=== PATIENT | male | born 1965 | race African-American/Black ===

== ENCOUNTER 2021-02-18 23:20 | Inpatient (IN) | payer OTHER ==
[~2021-02-18] VITALS: Ht 177.8 cm; Wt 127.0 kg
[2021-02-19] MEDS ORDERED: ASPIRIN 81MG TABLET PO ONE
[2021-02-19] MEDS ORDERED: NITROGLYCERIN OINT 1GM/INCH UDPKT TD ONE
[2021-02-19] MEDS ORDERED: FUROSEMIDE 40MG/4ML VIAL IV ONE
[2021-02-19 00:33] LABS: BASOPHILS % 0.9 % (0.0-2.0); EOSINOPHILS % 0.5 % (0.0-5.0); HEMATOCRIT. 45.3 % (42.0-52.0); HEMOGLOBIN. 15.1 g/dL (14.0-18.0); LYMPHOCYTES % 16.3 % (20.0-50.0); MEAN CORPUSCULAR HEMOGLOBIN 28.7 pg (28.0-32.0); MEAN PLATELET VOLUME 11.6 fl (7.4-10.4); NEUTROPHILS % 75.3 % (40.0-76.0); PLATELET 136 x1000/uL (130-400); RED BLOOD CELL COUNT 5.26 mill/uL (4.7-6.1)
[2021-02-19 01:45] LABS: CHLORIDE 95 mEq/L (98-107)
[2021-02-19] MEDS ORDERED: ONDANSETRON HCL 4MG/2ML INJ IV STA ×2 (04:01→09:09)
[2021-02-19] MEDS ORDERED: MORPHINE SULFATE 4 MG/ML CPJ (NOT FOR IM USE) IV STA ×2 (04:01→09:09)
[2021-02-19 10:48] VITALS: BP 118/69
[2021-02-19] MEDS ORDERED: ACETAMINOPHEN 325MG TABLET PO PRN ×2 (13:30)
[2021-02-19] MEDS ORDERED: CLONIDINE 0.1MG TABLET PO PRN (13:30)
[2021-02-19] MEDS ORDERED: DOCUSATE SODIUM 100MG CAPSULE PO PRN (13:30)
[2021-02-19] MEDS ORDERED: LORAZEPAM 0.5MG TABLET PO PRN (13:30)
[2021-02-19] MEDS ORDERED: IPRATROPIUM/ALBUTEROL 0.5-3(2.5)MG/3ML NEB HHN PRN (13:30)
[2021-02-19] MEDS ORDERED: ONDANSETRON HCL 4MG/2ML INJ IV PRN (13:30)
[2021-02-19] MEDS ORDERED: POTASSIUM CHLORIDE 20MEQ TABLET SR PO SCH (14:00)
[2021-02-19] MEDS: ENOXAPARIN 30MG/0.3ML SYR SUBCUT SCH ×2 (14:00→22:48)
[2021-02-19] MEDS: FUROSEMIDE 40MG/4ML VIAL IVP SCH ×2 (14:29→21:41)
[2021-02-19 15:24] VITALS: BP 118/69
[2021-02-19 16:00] VITALS: BP 107/64
[2021-02-19] MEDS ORDERED: QUET200T PO (16:17)
[2021-02-19] MEDS ORDERED: SACU1TAB PO (16:17)
[2021-02-19] MEDS ORDERED: FOLI-43 PO (16:17)
[2021-02-19] MEDS ORDERED: ZOLP5TAB2 PO (16:17)
[2021-02-19] MEDS ORDERED: CARV25TA47 PO (16:17)
[2021-02-19] MEDS ORDERED: ASPI-1497 PO (16:17)
[2021-02-19] MEDS ORDERED: PRED10TA23 PO (16:17)
[2021-02-19] MEDS ORDERED: POTA25TA8 PO (16:17)
[2021-02-19] MEDS ORDERED: LEVO50TA8 PO (16:17)
[2021-02-19] MEDS ORDERED: ATOR40TA70 PO (16:17)
[2021-02-19] MEDS ORDERED: AMIO100T4 PO (16:17)
[2021-02-19] MEDS ORDERED: GLIP10TA10 PO (16:17)
[2021-02-19 16:23] LABS: CREATINE KINASE MB FRACTION 1.7 ng/mL (0.5-3.6)
[2021-02-19] MEDS: HYDROCODONE/ACETAMINOPHEN 5/325MG TABLET PO PRN (18:01)
[2021-02-19 20:30] VITALS: BP 112/79
[2021-02-19] MEDS ORDERED: MORPHINE SULFATE 2 MG/ML CPJ (NOT FOR IM USE) IV NR (21:00)
[2021-02-19] MEDS ORDERED: NITROGLYCERIN 0.4MG TABLET SL SL PRN (21:00)
[2021-02-19] MEDS: CARVEDILOL 3.125 MG TABLET PO SCH (21:41)
[2021-02-19] MEDS: QUETIAPINE FUMARATE 50MG TABLET PO PRN (21:54)
[2021-02-20] VITALS: BP 97/75
[2021-02-20 04:18] VITALS: BP 102/72
[2021-02-20] MEDS ORDERED: DEXTROSE 50% WATER 50ML SYRINGE IV PRN (06:45)
[2021-02-20 06:49] LABS: BASOPHILS % 1.1 % (0.0-2.0); EOSINOPHILS % 0.9 % (0.0-5.0); HEMATOCRIT. 41.6 % (42.0-52.0); HEMOGLOBIN. 13.8 g/dL (14.0-18.0); LYMPHOCYTES % 18.7 % (20.0-50.0); MEAN CORPUSCULAR HEMOGLOBIN 28.7 pg (28.0-32.0); MEAN CORPUSCULAR VOLUME 86.9 fL (80.0-94.0); MEAN PLATELET VOLUME 11.2 fl (7.4-10.4); MONOCYTES % 7.1 % (2.0-8.0); NEUTROPHILS % 72.2 % (40.0-76.0); PLATELET 125 x1000/uL (130-400); RED BLOOD CELL COUNT 4.79 mill/uL (4.7-6.1)
[2021-02-20 06:53] LABS: CHLORIDE 93 mEq/L (98-107)
[2021-02-20 07:01] LABS: PHOSPHORUS 3.5 mg/dL (2.5-4.9)
[2021-02-20] MEDS: BLOOD SUGAR DIAGNOSTIC STRIP TEST SCH ×4 (07:20→20:46)
[2021-02-20] MEDS ORDERED: INSULIN LISPRO 100 UNITS/ML SUBCUT SCH (07:50)
[2021-02-20 08:06] VITALS: BP 108/75
[2021-02-20] MEDS: FUROSEMIDE 40MG/4ML VIAL IVP SCH ×2 (08:59→17:12)
[2021-02-20] MEDS: POTASSIUM CHLORIDE 20MEQ TABLET SR PO SCH (08:59)
[2021-02-20] MEDS: ENOXAPARIN 30MG/0.3ML SYR SUBCUT SCH ×2 (09:00→20:46)
[2021-02-20] MEDS: CARVEDILOL 3.125 MG TABLET PO SCH ×2 (09:00→20:45)
[2021-02-20 12:00] VITALS: BP 100/74
[2021-02-20] MEDS ORDERED: MAGNESIUM 2 G PREMIX 50 ML IV SCH (13:00)
[2021-02-20] MEDS ORDERED: INSULIN GLARGINE UD 100 UNITS/ML SYR SUBCUT SCH (13:00)
[2021-02-20] MEDS: INSULIN LISPRO 100 UNITS/ML SUBCUT SCH ×3 (13:15→21:03)
[2021-02-20 13:29] LABS: T4 FREE 1.86 ng/dL (0.76-1.46)
[2021-02-20] MEDS ORDERED: POTASSIUM CHLORIDE 20MEQ TABLET SR PO SCH (15:00)
[2021-02-20] MEDS ORDERED: HYDRALAZINE 20MG/ML VIAL IV PRN (15:15)
[2021-02-20] MEDS: ASPIRIN 81MG TABLET PO SCH (17:12)
[2021-02-20 19:50] VITALS: BP 104/67
[2021-02-20] MEDS ORDERED: MORPHINE SULFATE 2 MG/ML CPJ (NOT FOR IM USE) IV NR (20:15)
[2021-02-20] MEDS: FAMOTIDINE 20MG TABLET PO SCH (20:45)
[2021-02-20] MEDS ORDERED: TEMAZEPAM 15MG CAPSULE PO PRN (21:00)
[2021-02-20] MEDS: INSULIN GLARGINE UD 100 UNITS/ML SYR SUBCUT SCH (21:04)
[2021-02-20] MEDS: QUETIAPINE FUMARATE 50MG TABLET PO PRN (23:08)
[2021-02-21] VITALS (7 sets, daily range): BP systolic 92–115; BP diastolic 64–84
[2021-02-21] MEDS: BLOOD SUGAR DIAGNOSTIC STRIP TEST SCH ×4 (06:43→20:32)
[2021-02-21 06:51] LABS: PROTHROMBIN TIME 11.1 sec (9.6-11.0)
[2021-02-21 06:56] LABS: CHLORIDE 95 mEq/L (98-107)
[2021-02-21 07:07] LABS: BASOPHILS % 0.9 % (0.0-2.0); EOSINOPHILS % 0.5 % (0.0-5.0); HEMATOCRIT. 39.5 % (42.0-52.0); HEMOGLOBIN. 13.7 g/dL (14.0-18.0); LYMPHOCYTES % 20.3 % (20.0-50.0); MEAN CORPUSCULAR HEMOGLOBIN 29.6 pg (28.0-32.0); MEAN CORPUSCULAR VOLUME 85.4 fL (80.0-94.0); MEAN PLATELET VOLUME 11.8 fl (7.4-10.4); MONOCYTES % 6.3 % (2.0-8.0); PLATELET 126 x1000/uL (130-400); RED BLOOD CELL COUNT 4.62 mill/uL (4.7-6.1); RED CELL DISTRIBUTION WIDTH 13.6 % (11.6-14.6)
[2021-02-21] MEDS: INSULIN LISPRO 100 UNITS/ML SUBCUT SCH ×4 (07:53→21:46)
[2021-02-21] MEDS ORDERED: POTASSIUM CHLORIDE 20MEQ/PACKET PO NR (08:00)
[2021-02-21] MEDS: FUROSEMIDE 40MG/4ML VIAL IVP SCH ×2 (08:03→16:15)
[2021-02-21] MEDS: CARVEDILOL 3.125 MG TABLET PO SCH ×2 (08:10→21:49)
[2021-02-21] MEDS: POTASSIUM CHLORIDE 20MEQ TABLET SR PO SCH (08:11)
[2021-02-21] MEDS: LOSARTAN POTASSIUM 25 MG TABLET PO SCH (08:11)
[2021-02-21] MEDS: ASPIRIN 81MG TABLET PO SCH (08:11)
[2021-02-21] MEDS: ENOXAPARIN 30MG/0.3ML SYR SUBCUT SCH ×2 (08:12→20:32)
[2021-02-21] MEDS ORDERED: POTASSIUM CHLORIDE 20MEQ TABLET SR PO NR (08:30)
[2021-02-21] MEDS: INSULIN GLARGINE UD 100 UNITS/ML SYR SUBCUT SCH ×2 (09:06→21:46)
[2021-02-21] MEDS ORDERED: MAGNESIUM 2 G PREMIX 50 ML IV NR (11:48)
[2021-02-21] MEDS: AMIODARONE HCL 200 MG TABLET PO SCH ×2 (12:45→16:15)
[2021-02-21 19:30] LABS: *AMPHETAMINES SCREEN URINE NEGATIVE (NEGATIVE); *BARBITURATES SCREEN URINE NEGATIVE (NEGATIVE); *BENZODIAZEPINES SCREEN URINE NEGATIVE (NEGATIVE); *COCAINE SCREEN URINE NEGATIVE (NEGATIVE); CANNABINOID URINE SCREEN PRESUMTIVE POSITIVE (NEGATIVE)
[2021-02-21 19:31] LABS: METHADONE URINE SCREEN NEGATIVE (NEGATIVE); OPIATES URINE SCREEN PRESUMTIVE POSITIVE (NEGATIVE); PHENCYCLIDINE URINE SCREEN NEGATIVE (NEGATIVE)
[2021-02-21] MEDS: FAMOTIDINE 20MG TABLET PO SCH (21:45)
[2021-02-21] MEDS: HYDROCODONE/ACETAMINOPHEN 5/325MG TABLET PO PRN (21:49)
[2021-02-21] MEDS: QUETIAPINE FUMARATE 50MG TABLET PO PRN (21:55)
[2021-02-22] VITALS: BP 106/73
[2021-02-22 05:33] VITALS: BP 109/72
[2021-02-22 06:34] LABS: BASOPHILS % 0.8 % (0.0-2.0); EOSINOPHILS % 0.4 % (0.0-5.0); HEMATOCRIT. 39.2 % (42.0-52.0); HEMOGLOBIN. 13.5 g/dL (14.0-18.0); LYMPHOCYTES % 20.4 % (20.0-50.0); MEAN CORPUSCULAR HEMOGLOBIN 29.5 pg (28.0-32.0); MEAN CORPUSCULAR VOLUME 85.4 fL (80.0-94.0); MEAN PLATELET VOLUME 11.9 fl (7.4-10.4); MONOCYTES % 6.8 % (2.0-8.0); NEUTROPHILS % 71.6 % (40.0-76.0); PLATELET 127 x1000/uL (130-400); RED BLOOD CELL COUNT 4.59 mill/uL (4.7-6.1); RED CELL DISTRIBUTION WIDTH 13.9 % (11.6-14.6)
[2021-02-22 06:38] LABS: CHLORIDE 96 mEq/L (98-107)
[2021-02-22] MEDS: BLOOD SUGAR DIAGNOSTIC STRIP TEST SCH ×4 (06:41→21:10)
[2021-02-22] MEDS ORDERED: POTASSIUM CHLORIDE 20MEQ TABLET SR PO ONE (07:15)
[2021-02-22 07:38] VITALS: BP 102/75
[2021-02-22] MEDS: INSULIN LISPRO 100 UNITS/ML SUBCUT SCH ×4 (07:50→21:20)
[2021-02-22] MEDS: LOSARTAN POTASSIUM 25 MG TABLET PO SCH (09:15)
[2021-02-22] MEDS: ASPIRIN 81MG TABLET PO SCH (09:15)
[2021-02-22] MEDS: AMIODARONE HCL 200 MG TABLET PO SCH ×3 (09:16→18:19)
[2021-02-22] MEDS: POTASSIUM CHLORIDE 20MEQ TABLET SR PO SCH (09:16)
[2021-02-22] MEDS: FUROSEMIDE 40MG/4ML VIAL IVP SCH ×2 (09:16→17:00)
[2021-02-22] MEDS: ENOXAPARIN 30MG/0.3ML SYR SUBCUT SCH ×2 (09:16→20:12)
[2021-02-22] MEDS: CARVEDILOL 3.125 MG TABLET PO SCH ×2 (09:17→20:11)
[2021-02-22] MEDS: INSULIN GLARGINE UD 100 UNITS/ML SYR SUBCUT SCH ×2 (10:00→21:20)
[2021-02-22 12:00] VITALS: BP 97/67
[2021-02-22] MEDS ORDERED: POTASSIUM CHLORIDE 20MEQ TABLET SR PO NR (15:00)
[2021-02-22 16:00] VITALS: BP 90/59
[2021-02-22 20:00] VITALS: BP 99/63
[2021-02-22] MEDS ORDERED: MORPHINE SULFATE 2 MG/ML CPJ (NOT FOR IM USE) IV SCH (20:00)
[2021-02-22] MEDS: FAMOTIDINE 20MG TABLET PO SCH (21:16)
[2021-02-22] MEDS: QUETIAPINE FUMARATE 50MG TABLET PO PRN (21:16)
[2021-02-23] VITALS (7 sets, daily range): BP systolic 90–112; BP diastolic 66–80
[2021-02-23 06:08] LABS: EOSINOPHILS % 0.2 % (0.0-5.0); HEMATOCRIT. 40.4 % (42.0-52.0); LYMPHOCYTES % 21.2 % (20.0-50.0); MEAN CORPUSCULAR HEMOGLOBIN 29.5 pg (28.0-32.0); MEAN CORPUSCULAR VOLUME 85.4 fL (80.0-94.0); MEAN PLATELET VOLUME 11.9 fl (7.4-10.4); MONOCYTES % 6.3 % (2.0-8.0); NEUTROPHILS % 71.3 % (40.0-76.0); PLATELET 130 x1000/uL (130-400); RED BLOOD CELL COUNT 4.73 mill/uL (4.7-6.1); RED CELL DISTRIBUTION WIDTH 13.8 % (11.6-14.6)
[2021-02-23] MEDS: BLOOD SUGAR DIAGNOSTIC STRIP TEST SCH ×3 (06:21→16:59)
[2021-02-23 06:40] LABS: CHLORIDE 97 mEq/L (98-107)
[2021-02-23] MEDS: INSULIN LISPRO 100 UNITS/ML SUBCUT SCH ×3 (07:23→17:06)
[2021-02-23] MEDS: FUROSEMIDE 40MG/4ML VIAL IVP SCH ×2 (08:44→16:34)
[2021-02-23] MEDS: ASPIRIN 81MG TABLET PO SCH (08:44)
[2021-02-23] MEDS: CARVEDILOL 3.125 MG TABLET PO SCH (08:45)
[2021-02-23] MEDS: AMIODARONE HCL 200 MG TABLET PO SCH ×3 (08:45→16:34)
[2021-02-23] MEDS: LOSARTAN POTASSIUM 25 MG TABLET PO SCH (08:45)
[2021-02-23] MEDS: POTASSIUM CHLORIDE 20MEQ TABLET SR PO SCH (08:45)
[2021-02-23] MEDS: ENOXAPARIN 30MG/0.3ML SYR SUBCUT SCH (08:46)
[2021-02-23] MEDS: INSULIN GLARGINE UD 100 UNITS/ML SYR SUBCUT SCH (10:08)
[2021-02-23] MEDS ORDERED: AMIO100T4 PO (13:06)
[2021-02-23] MEDS ORDERED: FURO-151 MT (13:06)
[2021-02-23] MEDS ORDERED: COR3 MT (13:06)
[2021-02-23] MEDS ORDERED: POTASSIUM CHLORIDE 20MEQ TABLET SR PO NR (16:45)
== END 2021-02-23 18:15 | disposition home or self-care (01) | DRG 194 ==
LOC: ER 23:20 → 6WST 02-19 08:59 → ENRESERV 02-19 09:36
PROVIDERS: ADMIT Internal Medicine; ATTEND Internal Medicine
PROC: 4B02XTZ Measurement of Cardiac Defibrillator, External Approach (ICD-10-PCS; principal; 2021-02-23)
DX: I11.0 Hypertensive heart disease with heart failure (principal); I47.2 Ventricular tachycardia; I27.21 Secondary pulmonary arterial hypertension; E11.65 Type 2 diabetes mellitus with hyperglycemia; E83.42 Hypomagnesemia; E87.1 Hypo-osmolality and hyponatremia; I42.0 Dilated cardiomyopathy; I50.23 Acute on chronic systolic (congestive) heart failure; R06.03 Acute respiratory distress; F20.9 Schizophrenia, unspecified; E87.6 Hypokalemia; I48.0 Paroxysmal atrial fibrillation; I36.1 Nonrheumatic tricuspid (valve) insufficiency; Z95.810 Presence of automatic (implantable) cardiac defibrillator; Z79.899 Other long term (current) drug therapy; Z79.84 Long term (current) use of oral hypoglycemic drugs; Z79.82 Long term (current) use of aspirin
CPT/HCPCS: 36415; 71045; 80048; 80053; 80061; 80305; 82550; 82553; 82962; 83036; 83735; 83880; 84100; 84132; 84439; 84443; 84481; 84484; 85025; 85379; 93005; 93306; 93970; 99285; J1650; J1815; J1940; J2270; J2405; J3475